=== PATIENT | female | born 1975 | race Caucasian/White ===

== ENCOUNTER 2018-03-12 15:08 | Outpatient (REF) | payer SELFPAY | END 2018-03-12 15:28 | LOC: NCHCN 15:08 | PROVIDERS: PCP Internal Medicine; Visit Provider Nurse Practitioner Family | DX: L29.8 Other pruritus (principal) | CPT/HCPCS: 87480; 87510; 87660 ==

== ENCOUNTER 2019-05-19 13:12 | Outpatient (REF) | payer OTHER, SELFPAY ==
[2019-05-19 13:47] LABS: HCT 42.3 % (36.0-46.0); HGB 14.5 g/dL (12.0-15.5); Mean Corp. HGB Concentration 34.3 g/dL (32.0-36.0); Mean Corpuscular Volume 90.4 fL (80-95); Mean Platelet Volume 9.6 fL (8.0-11.0); Platelet Count 312 x1000/uL (130-400); RBC 4.68 m/cumm (4.00-5.20); RBC Distribution Width 13.5 % (11.7-14.6); White Blood Cell Count 5.66 k/cumm (4.4-10.8)
[2019-05-19 14:01] LABS: ALT 39 U/L (14-59); AST 17 U/L (15-37); Albumin 3.9 g/dL (3.4-5.0); Alkaline Phosphatase 65 U/L (46-116); Anion Gap 10.7 mmol/L (3-11); BUN 14 mg/dL (7-18); Bilirubin, Total 0.6 mg/dL (0.2-1.0); CO2 25.3 mmol/L (21.0-32.0); CREATININE 0.85 mg/dL (0.55-1.02); Calcium 9.2 mg/dL (8.5-10.1); Calculated LDL 89 mg/dL; Chloride 109 mmol/L (98-107); Cholesterol 142 mg/dL (<200); Glucose 99 mg/dL (74-106); HDL Cholesterol 37 mg/dL (40-60); Potassium 4.2 mmol/L (3.5-5.1); Sodium 145 mmol/L (136-145); Total Protein 6.7 g/dL (6.4-8.2); Triglyceride 83 mg/dL (<150)
== END 2019-05-19 13:32 ==
LOC: NCHCN 13:12
PROVIDERS: PCP Nurse Practitioner Family; Visit Provider Nurse Practitioner Family
DX: Z00.00 Encounter for general adult medical examination without abnormal findings (principal); Z86.32 Personal history of gestational diabetes; Z13.220 Encounter for screening for lipoid disorders
CPT/HCPCS: 80053; 80061; 85027

== ENCOUNTER 2019-05-26 10:37 | Outpatient (REF) | payer OTHER, SELFPAY ==
--- NOTE | 2019-05-26 08:00 | PAPFT_PTH ---
PATIENT: Fidelina Mac LOC: [facility] U#:[id number] AGE/SX: 43/F ROOM: RE05/26/[address]: Edgar Zamora : 1975 BED: DIS: 05/26/2019 SPEC #: [id number] RECD: 05/26/19 12:59 STATUS: PRICE REQ #: [id number] CAROLINE: 05/26/19 08:[address]: Edgar Zamora DEPT: [facility] Cytology RECD BY: Catie Whitlock Tissues: 1 - CX/ENDOCX FOR PAP SMEARS Procedures: PAP THIN PREP/UVM Screening HPV DNA PROBE Comments: [id number]
== END 2019-05-26 10:57 ==
LOC: NCHCN 10:37
PROVIDERS: PCP Nurse Practitioner Family; Visit Provider Nurse Practitioner Family
DX: N89.8 Other specified noninflammatory disorders of vagina (principal); Z12.4 Encounter for screening for malignant neoplasm of cervix; Z11.51 Encounter for screening for human papillomavirus (HPV)
CPT/HCPCS: 88142; 87480; 87510; 87624; 87660

== ENCOUNTER 2019-05-30 00:56 | Outpatient (CLI) | payer OTHER, SELFPAY ==
--- NOTE | 2019-05-30 08:07 | DI.US_ITS ---
EXAM: US PELVIS TRANSVAGINAL CLINICAL HISTORY: ABNL UTERINE BLEEDING, N93.9 TECHNIQUE: Ultrasound performed using standard protocol. COMPARISON: No exams were available for comparison FINDINGS: Pelvic ultrasound was performed transabdominally and transvaginally. Please see the accompanying maryann a sheet for measurements of pelvic structures. Uterus is unremarkable within an 11 millimeter homoge neous endometrial stripe. Some tiny calcifications may be present in the lower uterine segment, poss ible fibroid. Tiny both nabothian cyst noted as well. No free fluid identified in the cul-de-sac. Ovaries as seen unremarkable although limited visualiza tion of the right ovary noted. Dominant 19 millimeter follicle left ovary. Limited scanning of the kidneys is unremarkable. IMPRESSION: Negative pelvic ultrasound.
== END 2019-05-30 01:16 ==
PROVIDERS: PCP Nurse Practitioner Family; Visit Provider Nurse Practitioner Family
DX: N93.9 Abnormal uterine and vaginal bleeding, unspecified (principal); N88.8 Other specified noninflammatory disorders of cervix uteri
CPT/HCPCS: 76830; 76856

== ENCOUNTER 2020-05-29 16:02 | Outpatient (REF) | payer BC, SELFPAY ==
--- NOTE | 2020-05-29 14:00 | PAPFT_PTH ---
PATIENT: Fidelina Mac LOC: [facility] #:[id number] AGE/SX: 44/F ROOM: RE05/29/[address]: Edgar Zamora : 1975 BED: DIS: 05/29/2020 SPEC #: [id number] RECD: 05/29/20 17:41 STATUS: PRICE REEdin #: [id number] CAROLINE: 05/29/20 14:[address]: Edgar Zamora DEPT: [facility] Cytology RECD BY: Catie Whitlock Tissues: 1 - CX/ENDOCX FOR PAP SMEARS Procedures: PAP THIN PREP/UVM Screening HPV DNA PROBE Comments: [id number]
== END 2020-05-29 16:22 ==
LOC: NCHCN 16:02
PROVIDERS: PCP Nurse Practitioner Family; Visit Provider Nurse Practitioner Family
DX: Z00.00 Encounter for general adult medical examination without abnormal findings (principal); Z12.4 Encounter for screening for malignant neoplasm of cervix; Z11.51 Encounter for screening for human papillomavirus (HPV)
CPT/HCPCS: 88142; 87624

== ENCOUNTER 2020-08-08 02:05 | Outpatient (CLI) | payer BC, SELFPAY ==
--- NOTE | 2020-08-08 | DI.US_ITS ---
EXAM: US BREAST LT COMPLETE CLINICAL HISTORY: RT BREAST LUMP, N63.0. TECHNIQUE: See combined report. COMPARISON: See combined report FINDINGS: See combined report IMPRESSION: See combined report Breast density Category C or D implies that the patient has dense breast tissue. Dense breast tissue can make it harder to find cancer on a mammogram. Dense breast tissue is also associated with an incr eased risk of breast cancer. This information about the result of the mammogram report was provided to the patient to raise their awareness. Use this report when you speak with the patient about their risks for breast cancer, which includes their family history. At that time, you may recommend additional screening tests (Ultrasoun d or MRI) as these tests may add significant information. A negative radiographic report should not delay biopsy if a dominant or clinically suspicious mass is present. Up to ten percent of cancers are not identified on mammography. A negative report may reinforce clinical impression. Adenosis and dense breasts may obscure an underlying neoplasm. False positive reports average 6 to 10%. Patient will receive a letter notifying them of these results.
--- NOTE | 2020-08-08 | DI.US_ITS ---
EXAM: BILATERAL COMPLETE BREAST ULTRASOUND CLINICAL HISTORY: RIGHT BREAST LUMP. ABNORMALITY IN LEFT BREAST ON MAMMOGRAM TECHNIQUE: Complete ultrasound BOTH BREASTS was performed including all 4 quadrants, the retroareola r region, and BOTH AXILLARY REGIONS. COMPARISON: Today's diagnostic baseline mammogram was reviewed. This 44-year-old patient was sent f or diagnostic mammogram because her provider felt a possible lump in her right breast. She did not p resent to her provider with lump FINDINGS: Left breast ultrasound is negative in all 4 quadrants. This implies that the asymmetric tissue seen in the upper outer quadrant of the left breast on today's baseline mammogram is just asymmetric gland ular tissue. There is no adenopathy in the left axilla. Right breast ultrasound today reveals 2 similar appearing findings at the 3-4 o'clock position which is the area of possible concern. Both have the appearance of benign lipomas. These measure 10 x 5 m illimeters and 11 x 6 millimeter. There are no cysts seen. No solid lesions seen in all 4 quadrants . There is no adenopathy in the right axilla. IMPRESSION: Two benign lipomas at the 3-4 o'clock position of the right breast in the area of apparent clinical c oncern. No ominous solid lesions. No cysts seen. Appropriate follow-up is right breast ultrasound in 6 months to ensure stability. BI-RADS Category 3 - 6 month - Probably Benign Finding: Recommend follow-up ULTRASOUND in 6 months Breast Density - Category B - Scattered areas of fibroglandular density Breast density Category C or D implies that the patient has dense breast tissue. Dense breast tissue can make it harder to find cancer on a mammogram. Dense breast tissue is also associated with an incr eased risk of breast cancer. This information about the result of the mammogram report was provided to the patient to raise their awareness. Use this report when you speak with the patient about their risks for breast cancer, which includes their family history. At that time, you may recommend additional screening tests (Ultrasoun d or MRI) as these tests may add significant information. A negative radiographic report should not delay biopsy if a dominant or clinically suspicious mass is present. Up to ten percent of cancers are not identified on mammography. A negative report may reinforce clinical impression. Adenosis and dense breasts may obscure an underlying neoplasm. False positive reports average 6 to 10%. Patient will receive a letter notifying them of these results.
--- NOTE | 2020-08-08 09:52 | DI.MAMMO_ITS ---
EXAM: MG MAMMO DIAGNOSTIC BI CLINICAL HISTORY: DIAGNOSTIC, RT BREAST LUMP,N63.0, ? CYST. TECHNIQUE: Both CC and MLO mammographic images were obtained with 3D [employer] and util izing computer aided detection (CAD). COMPARISON: None. This is a baseline diagnostic mammogram on this 44-year-old patient who has provi milton felt a possible lump in her right breast. The patient did not present to her provider a self det ected breast change. FINDINGS: No significant radiographic findings in the right breast. Asymmetric tissue-possible nodule upper ou ter quadrant of the opposite-left breast is seen and prompted ultrasound examination to be an actual bilateral study (not just the symptomatic right breast). No malignant-appearing microcalcification groups in either breast. No skin thickening-traction. Bilateral complete breast ultrasound examination was performed immediately following this mammogram t gabby and reveals no significant focal findings in the left breast. Right breast ultrasound reveals 2 similar appearing benign lipomas at the 3-4 o'clock position, this corresponding to the area of palp able abnormality. There are no solid or significant cystic lesions seen in all 4 quadrants of the br east. There is no axillary adenopathy on either side IMPRESSION: No radiographic evidence of malignancy There 2 similar benign appearing lipomas at the 3-4 o'clock position of the right breast which corres pond to apparent clinical palpable finding. No solid lesions. Appropriate follow-up is repeat right breast ULTRASOUND in 6 months, earlier if clinically indicated. . BI-RADS Category 3 - 6 month - Probably Benign Finding: Recommend follow-up mammography in 6 months Breast Density - Category B - Scattered areas of fibroglandular density Breast density Category C or D implies that the patient has dense breast tissue. Dense breast tissue can make it harder to find cancer on a mammogram. Dense breast tissue is also associated with an incr eased risk of breast cancer. This information about the result of the mammogram report was provided to the patient to raise their awareness. Use this report when you speak with the patient about their risks for breast cancer, which includes their family history. At that time, you may recommend additional screening tests (Ultrasoun d or MRI) as these tests may add significant information. A negative radiographic report should not delay biopsy if a dominant or clinically suspicious mass is present. Up to ten percent of cancers are not identified on mammography. A negative report may reinforce clinical impression. Adenosis and dense breasts may obscure an underlying neoplasm. False positive reports average 6 to 10%. Patient will receive a letter notifying them of these results.
== END 2020-08-08 02:25 ==
PROVIDERS: PCP Nurse Practitioner Family; Visit Provider Nurse Practitioner Family
DX: N63.14 Unspecified lump in the right breast, lower inner quadrant (principal); N63.21 Unspecified lump in the left breast, upper outer quadrant; D24.1 Benign neoplasm of right breast
CPT/HCPCS: 76642; 77062; 77066; G0279

== ENCOUNTER 2021-06-03 22:17 | Outpatient (REF) | payer BC, SELFPAY | END 2021-06-03 22:18 | disposition home or self-care (01) | LOC: LBN 22:17 | PROVIDERS: PCP Nurse Practitioner Family; Visit Provider Family Medicine | DX: L08.89 Other specified local infections of the skin and subcutaneous tissue (principal) | CPT/HCPCS: 87077; 87070; 87205 ==

== ENCOUNTER 2021-06-05 15:06 | Emergency (ER) | payer BC, SELFPAY ==
[2021-06-05 15:13] VITALS: BP 144/79; PULSE 70; RESP 14; TEMP 36.5; O2SAT 99
--- NOTE | 2021-06-05 15:15 | DI.RAD_ITS ---
Exam(s) XR HAND LT COMPLETE EXAM: XR HAND LT COMPLETE CLINICAL HISTORY: Wound left index finger, R/O Gas, Foreign body. TECHNIQUE: 2D digital imaging was performed. COMPARISON: No exams were available for comparison FINDINGS: No evidence of fracture or dislocation. No radiopaque foreign body. No osseous lesions. No soft ti ssue gas. IMPRESSION: DATA REPOSITORY: RADIATION DOSE DELIVERED:
--- NOTE | 2021-06-05 15:27 | W.ED.GENAD ---
Discharge Plan Disposition Patient Disposition: HOME Condition: Stable Discharge Details Clinical Impression: Cellulitis of hand, left Primary Care Provider: Edgar Zamora ED Provider: Daniel Mayer Home Meds and New Rx's Prescriptions: New doxycycline hyclate 100 mg capsule 100 mg PO BID Qty: 20 RF: 0 Continued clobetasol 0.05 % cream 1 applic topical .COMPLEX PRNRF: 0 cephalexin 500 mg capsule 1,000 mg PO BID RF: 0 Discharge Instructions Instructions: Cellulitis (ED) Additional Instructions: Continue cephalexin and add on doxycycline as directed. Rest, elevate, warm compresses every 2 hours for 20 minutes. [id number] Tylenol and/or Motrin as directed for discomfort. Your tetanus status is up-to-date and your hand x-ray was unremarkable. Please watch for new or worsening symptoms and return to the ER for any concerns. Otherwise I recommend contacting your primary care provider to discuss your ER visit and wound reevaluation in the next 2-3 days. Discharge Data Discharge Date/Time-TO BE ENTERED AT DEPARTURE: 06/05/21 16:35 Medical Decision Making <Raissa Guerrero - Last Filed: 06/11/21 08:12> 45-year-old female presents to the ER with chief complaint of wound to her left index finger which has been present and Thursday. She reports that she awoke with a small blister to the dorsum of her left index finger she is unsure if she sustained a burn or cut. She was seen at [facility] on Thursday and was prescribed cephalexin. She reports she called the provider today and has doubled up on the dose of cephalexin so she is taking it now 4 times a day. She reports some increased tenderness, erythema and swelling to the dorsum of her left hand. She does have tenderness and with flexion of her left index finger. No tenderness with flexion of her wrist. No red streaks noted to her forearm denies any fever or chills. Last Tdap was 2019. X-ray ordered to rule out foreign body or gas. Will place patient on additional antibiotics doxycycline 100 mg twice daily first dose given here. 500 mg Rocephin IM ordered. Care is to be handed off to oncoming provider Daniel Mayer pending x-ray result rule out foreign body or subcutaneous emphysema. <ADDIS Smith - Last Filed: 06/05/21 16:25> I assumed care of this 45-year-old female from my colleague EMILY Guerrero, please see her initial HPI and examination. At time of signout awaiting x-ray of left hand and discharge if unremarkable. Patient is already on Keflex for a left hand wound, plan is to give IM Rocephin, and add on p.o. doxycycline. X-ray of left hand read by radiology as no evidence of fracture or dislocation. No radiopaque foreign body. No osseous lesions. No soft tissue gas. I discussed x-ray findings with the patient. We then discussed the initial position set forth by EMILY Guerrero. Patient has no additional questions or concerns and is comfortable plan. Strict discharge and return precautions were provided. This documentation was generated using [employer] system, please disregard any oddities of phrase or misspellings. HPI <Raissa Guerrero - Last Filed: 06/11/21 08:12> General Mode of arrival: ambulatory. Date/Time Provider Initiated Documentation: 06/05/21 15:17. Limitations to Documentation: no limitations. Information obtained by: patient and RN notes reviewed. HPI Narrative: 45-year-old female presents to the ER with chief complaint of wound to her left index finger which has been present and Thursday. She reports that she awoke with a small blister to the dorsum of her left index finger she is unsure if she sustained a burn or cut. She was seen at [facility] on Thursday and was prescribed cephalexin. She reports she called the provider today and has doubled up on the dose of cephalexin so she is taking it now 4 times a day. She reports some increased tenderness, erythema and swelling to the dorsum of her left hand. She does have tenderness and with flexion of her left index finger. No tenderness with flexion of her wrist. No red streaks noted to her forearm denies any fever or chills. Last Tdap was 2019. Related Data Home Medications Medication Instructions Recorded Confirmed cephalexin 1,000 mg PO BID 06/05/21 06/05/21 clobetasol 1 applic TOPICAL .COMPLEX PRN 06/05/21 06/05/21 doxycycline hyclate 100 mg PO BID #20 cap 06/05/21 Previous Rx's Medication Instructions Recorded doxycycline hyclate 100 mg PO BID #20 cap 06/05/21 Allergies Allergy/AdvReac Type Severity Reaction Status Date / Time No Known Allergies Allergy Unverified 06/05/21 15:16 General Stated Complaint: Orthopedic BERT: 3 Review of Systems <Raissa Guerrero - Last Filed: 06/11/21 08:12> All systems reviewed & are unremarkable except as noted in HPI and below Musculoskeletal Musculoskeletal: Reports as per HPI Integumentary/Breasts Skin/Breast: Reports erythema, Reports skin swelling and Reports wounds PFSH <Raissa Guerrero - Last Filed: 06/11/21 08:12> All Active Problems (Updated 06/05/21 @ 16:22 by ADDIS Smith) Cellulitis of hand, left (Acute) Screening for colon cancer (Acute) 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 Rx with Clobetasol with good results. Acute pain of right shoulder (Acute) Body mass index (bmi) 38.0-38.9, adult (Acute) Abnormal uterine bleeding (Acute) Discharge of vagina (Acute) Medical History (Updated 06/05/21 @ 16:22 by ADDIS Smith) Episcleritis periodica fugax of right eye Fingers fractured in childhood. History of gestational diabetes mellitus Localized swelling of left foot Preventative health care Family History (Updated 06/04/19 @ 20:55 by Karol Lynch MD) Brother Heart disease heart valve surgery @ 28yo. Social History (Updated 06/04/19 @ 20:52 by Karol Lynch MD) Smoking/Tobacco Use Status: Never Smoking risk assessment performed?: Yes Alcohol Intake: current Alcohol Intake frequency: 0-2 drinks per day Drug use: Never Substance use type: does not use Household members: spouse and other Details: H-Kevin ([employer]) Children-Flash Rylan Number of Children: 2 number of grandchildren: 0 Communication Needs: None Education Level: other Details: law school current occupation: [employer] Seatbelt use: always Do you feel safe at home: Yes Do you feel safe in your relationship?: Yes Female Reproductive History Menstrual control method: condoms History History 2 Para Hx # Term Pregnancies 2 Multiple births Hx # Pregnancies Ectopic pregnancies AB induced Hx Number of Living Children AB spontaneous Exam <Raissa Guerrero - Last Filed: 06/11/21 08:12> Extrem Hand/finger images: 1. Approximately 1.5 cm x 1.5 cm round wound with white floor, erythema surrounding, swelling and induration. No active drainage noted. 2. Erythema, warmth, swelling and tenderness Course <Raissa Guerrero - Last Filed: 06/11/21 08:12> Vital Signs Vital signs: Vital Signs Temperature 36.5 C 06/05/21 15:13 Pulse 70 06/05/21 15:13 Respiratory Rate 14 06/05/21 15:13 Blood Pressure 144/79 H 06/05/21 15:13 Pulse Oximetry 99 06/05/21 15:13 Temperature 36.5 C 06/05/21 15:13 Temperature Source Skin 06/05/21 15:13 Pulse 70 06/05/21 15:13 Respiratory Rate 14 06/05/21 15:13 Respiratory Effort 06/05/21 15:19 Blood Pressure 144/79 H 06/05/21 15:13 Pulse Oximetry 99 06/05/21 15:13 Oxygen Delivery Method Room Air 06/05/21 15:13 Oxygen Flow Rate 0 06/05/21 15:13 Pain Level 3 06/05/21 15:13 Comment 06/05/21 15:13 Sign Out <Raissa Guerrero - Last Filed: 06/11/21 08:12> Sign Out Data: Sign Out Comment: Pending xray results and Doxycycline prescription. Last updated by Raissa Guerrero at 06/05/21 16:00
[2021-06-05] MEDS: Doxycycline Hyclate 100 MG CAP PO (15:39)
[2021-06-05] MEDS: cefTRIAXone 500 MG VIAL IM (16:10)
[2021-06-05 16:33] VITALS: BP 131/71; PULSE 74; TEMP 36.3; O2SAT 97
== END 2021-06-05 16:35 | disposition home or self-care (01) ==
PROVIDERS: Emergency Provider Physician Assistant; PCP Nurse Practitioner Family
DX: L03.114 Cellulitis of left upper limb (principal); S60.941A Unspecified superficial injury of left index finger, initial encounter; X58.XXXA Exposure to other specified factors, initial encounter
CPT/HCPCS: 96372; 99284; 73130; 99283; J0696

== ENCOUNTER 2021-12-30 09:09 | Day surgery (SDC) | payer BC, SELFPAY ==
--- NOTE | 2021-12-30 06:32 | COLE_ITS ---
Colonoscopy Report Date of procedure: 12/30/21 Pre-op diagnosis general: colon cancer screening Post-op diagnosis procedure note: other (polyps) Procedure: Colonoscopy with polypectomy Surgeon: Ana Chahal Anesthesia Type: General:No Airway Estimated blood loss (mL): 2 Pathology: other (ascending polyps x2, sigmoid polyp) Complications: None Disposition: same day Indications: The patient is here for Colonoscopy pre-op. She has no family history of colon cancer. She has not had any bowel habit changes. -Discussed colonoscopy bowel prep as well as the procedure. Discussed possible complications of the procedure to include bleeding, pain, perforation, missed small lesion/polyp, sore throat, aspiration and adverse reaction to the medications. Questions were answered to patient?s satisfaction. No guarantees were implied or given.? P// Colonoscopy under sedation. Prep: Miralax/Dulcolax Procedure Start Time: 11:27 Procedure End Time: 11:52 Retraction Time: 9 minutes Findings: 3 small benign appearing polyps Procedure Description: After informed consent was obtained the patient was taken to the procedure room and placed in a left decubitous position. Monitors were applied and a time out was done. The patients name, date of , procedure, allergies to medica tions and metal in their body was reviewed. The patient was then sedated. Once sedated and comfortable a rectal exam was done. External exam was normal. Internal exam revealed a normal sphincter tone and no palpable masses. The scope was then introduced and retro-flexed. No internal hemorrhoids, polyps or masses were identified on retro-flexion. The scope was then advanced to the cecum without difficulty. The ileocecal vlave and appendiceal orifice were identified. The prep was good. The scope was then slowly retracted over 9 minutes back into the rectum. Polyps were removed at with cold forceps in the ascending colon x2 and sigmoid colon x1. There was no diverticulosis noted. The scope was removed and the patient was woken up and taken back to Same day surgery in stable condition. The patient tolerated the procedure well and there were no immediate complications.
--- NOTE | 2021-12-30 06:34 | W.PM.DSUDISC ---
Discharge Plan Disposition Patient Disposition: HOME Condition: Good Discharge Details Reason For Visit: colonoscopy Attending Provider: Ana Chahal Primary Care Provider: Edgar Zamora Home Meds and New Rx's Prescriptions: Continued clobetasol 0.05 % cream See Rx Instructions .ROUTE .COMPLEX Qty: 45 5RF Dose Instruction: APPLY SMALL AMOUNT TOPICALLY TO VULVA TWICE A WEEK Rx Instructions: APPLY SMALL AMOUNT TOPICALLY TO VULVA TWICE A WEEK Discontinued polyethylene glycol 3350 17 gram/dose powder 238 g PO ONCE Qty: 238 0RF Rx Instructions: take per colonoscopy instructions bisacodyl [Dulcolax (bisacodyl)] 5 mg tablet,delayed release (DR/EC) 5 mg PO ONCE Qty: 4 0RF Rx Instructions: take per colonoscopy instructions Discharge Instructions Instructions: Colorectal Polyps (DC) Additional Instructions: Findings:3 small polyps Follow up: most likely 10 years Please call if you develop: fevers >101.5 Nausea or Vomiting Abdominal pain that is not transient Rectal bleeding that is more then a tbsp A hard abdomen and inability to pass gas DAY SURGERY UNIT POST ENDOSCOPY INSTRUCTIONS Instructions for everyone who is given Anesthesia: For your safety, please do the following for the next 24 Hours: a. Do not drive or operate dangerous equipment b. Do not drink alcohol beverages or use any recreational drugs for the first 24 hours or while taking pain medications. The medications in your body may have a reaction that can be dangerous. c. Do not make any important decisions or sign any important papers 1. Generally there are no restrictions on your activity after a day or so has gone by, but you may feel a bit fatigued for a few days. 2. After you arrive home you may have a light meal and return to a normal diet as you can tolerate it without feeling sick to your stomach. 3. After surgery, you may feel pain or discomfort. This should be only transient, but if it persists please contact your doctor. 4. If there are any questions regarding the findings of your procedure, please feel free to contact your doctor. 6. If you are unable to contact your doctor with a problem, contact the hospital at [phone]. 7. Continue all your regular medications unless directed otherwise. I understand the above instructions and have no questions. Signature of Patient or Responsible Adult Escort Date/Time Name of Responsible Adult Escort Signature of Nurse Date/Time Activity:: Activity as Tolerated Diet:: As Tolerated Discharge Orders Discharge Orders: Discharge Order (Routine); Ordered 12/30/21 Ordered By: Ana Chahal
[2021-12-30 09:15] VITALS: BP 127/88; PULSE 68; RESP 18; TEMP 36.2; O2SAT 96
[2021-12-30] MEDS: Lactated Ringers 1,000 ML 80 ML IV (09:42)
--- NOTE | 2021-12-30 11:13 | W.ANESPRE ---
General Info Date of Service Date Performed: 12/30/21 Height: 5 ft 11 in Weight: 123.2 kg Body Mass Index (BMI): 37.8 Surgical Procedure: Operation Date: 12/30/21 12:05 Proposed Procedure Side Surgeon p Colonoscopy Ana Chahal MD Meds Allergies and Home Medications Allergies Allergy/AdvReac Type Severity Reaction Status Date / Time No Known Allergies Allergy Unverified 12/30/21 09:12 Home Medication Medication Instructions Recorded clobetasol 0.05 % topical cream See Rx Instructions .Route 11/29/21 .COMPLEX #45 grams bisacodyl 5 mg tablet,delayed 5 mg PO ONCE colonscopy bowel prep 12/20/21 release (Dulcolax (bisacodyl)) #4 tabs polyethylene glycol 3350 17 238 g PO ONCE colonoscopy prep 12/20/21 gram/dose oral powder #238 grams Current Visit Medications: Current Medications Generic Name Dose Route Start Last Admin Trade Name Freq PRN Reason Stop Dose Admin Hyoscyamine Sulfate 0.125 mg 12/30/21 06:35 Hyoscyamine 0.125 Mg Sl/Oral/Chew SL DIRECTED PRN Ringer's Solution 1,000 mls @ 80 mls/hr 12/30/21 06:00 12/30/21 09:42 IV 01/26/22 23:59 80 mls/hr INFUSION MARK Administration IV Miscellaneous Supplies 1 each 12/30/21 06:00 Iv Access IV 01/26/22 23:59 DIRECTED MARK Ondansetron HCl 4 mg 12/30/21 06:35 Ondansetron 4 Mg/2 Ml Vial IVP Q4H PRN PRN Nausea / Vomiting Sodium Chloride 0 ml 12/30/21 06:00 Normal Saline Flush 10 Ml Syr IV 01/26/22 23:59 PRN PRN Sodium Chloride 0 ml 12/30/21 06:00 Normal Saline 10 Ml Vial IJ 01/26/22 23:59 DIRECTED PRN Sterile Water 0 ml 12/30/21 06:00 Water,Injection,Sterile 10 Ml Vial IJ 01/26/22 23:59 DIRECTED PRN PFSH Active Problems Active Problems: Problem Status Onset Code Screening for colon cancer Z12.11 Lichen sclerosus et atrophicus L90.0 Acute pain of right shoulder M25.511 Body mass index (bmi) 38.0-38.9, adult Z68.38 Abnormal uterine bleeding N93.9 Discharge of vagina N89.8 Medical History Medical History Episcleritis periodica fugax of right eye Fingers fractured in childhood. History of gestational diabetes mellitus Localized swelling of left foot Preventative health care Tobacco Smoking/Tobacco Use Status: Never Passive smoking exposure: No Alcohol Alcohol Intake: current Alcohol intake frequency: 0-2 drinks per day Substance Use Substance use: Never Substance use type: does not use Prental History History 2 Para Hx # Term Pregnancies 2 Multiple births Hx # Pregnancies Ectopic pregnancies AB induced Hx Number of Living Children AB spontaneous Vital Signs and Lab Results Vital Signs Most Recent Vital Signs in EMR: Most Recent Vital Signs Temp Pulse Resp BP Pulse Ox 36.2 C L 68 18 127/88 96 12/30/21 09:15 12/30/21 09:15 12/30/21 09:15 12/30/21 09:15 12/30/21 09:15 Lab Results Blood Type / Crossmatch: No Data to Display Complete Blood Count: No Data to Display Complete Metabolic Panel: No Data to Display Liver Function Panel: No Data to Display Coagulation Panel: No Data to Display Cardiac Panel: No Data to Display Arterial Blood Gas: No Data to Display Venous Blood Gas: No Data to Display Pancreas Panel: No Data to Display Thyroid Panel: No Data to Display Infectious Disease: No Data to Display Blood Cultures: No Data to Display Toxicology Panel: No Data to Display Panel: No Data to Display Anesthesia Assessment and Plan Anesthesia History Personal History: No History of Anesthesia Complications Family History: No Family History of Anesthesia Complications Exercise Tolerance Exercise Tolerance: Metabolic Equivalents>4 Pertinent Negatives Pertinent Negatives: No Symptoms of GERD, No Major Cardiovascular Symptoms or Complaints, No Major Pulmonary Symptoms or Complaints and No History of CVA/TIA Cardiac & Pulmonary Exam Cardiac Exam: Normal S1/S2 Heart Sounds Pulmonary Exam: Clear Bilateral Breath Sounds Implantable Cardiac Device Does patient have a Pacemaker or an ICD?: No Airway Exam Known Difficult Airway: No Mallampati Class: 1 Mouth Opening: Normal (> 3cm) Thyromental Distance: Greater than 3 cm Neck Range of Motion: Full ROM Neck Circumference: Normal Teeth Condition: Normal Dentition ASA Classification ASA Score: ASA 2 Emergency Case?: No NPO Status NPO Status: NPO Clears >2 hours, Solids >8 hours Status Status: Not Relevant due to Medical History Anesthesia Plan Resuscitation Status: Full Code Anesthesia Technique: General Anesthesia Airway Planned: Natural Airway Monitors Used: Standard Monitors
[2021-12-30 11:15] VITALS: BMI 37.8
--- NOTE | 2021-12-30 11:45 | BOWEL_PTH ---
PATIENT: Fidelina Mac LOC: [facility] U#:[id number] AGE/SX: 46/F ROOM: RE12/30/[address]: Ana Chahal MD : 1975 BED: DIS: 12/30/2021 SPEC #: [id number] RECD: 12/30/21 12:39 STATUS: PRICE REQ #: [id number] CAROLINE: 12/30/21 11:[address]: Ana Chahal DEPT: Surgical Specimen RECD BY: Catie Whitlock ENTERED: 12/30/21 12:40 SP TYPE: Bowel OTHR DR: Edgar Zamora Tissues: 1 - BIOPSY BOWEL 2 - BIOPSY BOWEL Procedures: GROSS AND MICRO LEVEL 4 Comments: [id number]
[2021-12-30 12:02] VITALS: BP 122/77; PULSE 69; RESP 17; TEMP 36.5; O2SAT 96
--- NOTE | 2021-12-30 12:07 | W.ANESPOSTOP ---
Postoperative Evaluation Date, Time and Location Date Performed: 12/30/21 Time Performed: 12:07 Patient Location: Day Surgery Unit Vital Signs Most Recent Imported Vital Signs: Most Recent Vital Signs Temp Pulse Resp BP Pulse Ox 36.2 C L 68 18 127/88 96 12/30/21 09:15 12/30/21 09:15 12/30/21 09:15 12/30/21 09:15 12/30/21 09:15 Most Recent Manually Entered Vital Signs: Adult Blood Pressure: 122/77 Heart Rate: 68 Respirations: 12 Oxygen Saturation (%): 96 Temperature (C): 36.3 C Pain Score (0-10 Scale): 0 Assessment Mental Status: Awake (Alert & Oriented to Patient Baseline) Airway and Respiratory Function: Patent airway with normal (patient baseline) respiratory exam Cardiovascular Function: Hemodynamically Stable Hydration Status: Adequately Hydrated Nausea & Vomiting: No Nausea or Vomiting Pain: Pt. Denies Any Pain Peripheral Nerve Block: Patient did not receive a nerve block
[2021-12-30 12:08] VITALS: BP 122/77; PULSE 68; RESP 12; TEMPC 36.3; O2SAT 96
[2021-12-30 12:30] VITALS: BP 122/88; PULSE 53; RESP 18; TEMP 36; O2SAT 96
== END 2021-12-30 12:56 | disposition home or self-care (01) ==
PROVIDERS: PCP Nurse Practitioner Family; Visit Provider Surgery
PROC: 0DJD8ZZ Inspection of Lower Intestinal Tract, Via Natural or Artificial Opening Endoscopic (ICD-10-PCS; CPT 45378; principal; 2021-12-30 12:00)
DX: Z12.11 Encounter for screening for malignant neoplasm of colon (principal); K63.5 Polyp of colon
CPT/HCPCS: 45380; 88305

== ENCOUNTER 2022-05-30 14:13 | Outpatient (REF) | payer BC, SELFPAY ==
[2022-05-30 19:09] LABS: Abs Immature Grans 0.01 10^3/uL (0.0-0.06); Absolute Basophil Count 0.06 10^3/uL (0.0-0.2); Absolute Eosinophil Count 0.13 10^3/uL (0.0-0.7); Absolute Monocyte Count 0.52 10^3/uL (0.1-0.8); Absolute Neutrophil Count 4.42 10^3/uL (1.2-6.7); Basophils % 0.9; HCT 44.1 % (36.0-46.0); HGB 14.9 g/dL (11.2-15.7); Immature Grans % 0.2; Lymphocytes % 21.4; MCH 30.3 pg (27.0-33.0); MCHC 33.8 % (32.0-36.0); MCV 90 fL (80-95); MPV 9.7 fL (8.0-11.0); Neutrophils % 67.5; Platelet Count 257 10^3/uL (130-400); RBC 4.91 10^6/uL (3.93-5.22); RDW 12.8 % (11.7-14.6); RDW-SD 41.9 fL; WBC 6.54 10^3/uL (4.4-10.8)
[2022-05-30 19:53] LABS: ALT 37 U/L (14-59); AST 24 U/L (15-37); Albumin 4.3 g/dL (3.4-5.0); Alkaline Phosphatase 88 U/L (46-116); Anion Gap 11.9 mmol/L (3-11); BUN 13 mg/dL (7-18); Bilirubin, Total 0.6 mg/dL (0.2-1.0); CO2 26.1 mmol/L (21.0-32.0); CREATININE 0.8 mg/dL (0.55-1.02); Calcium 9.5 mg/dL (8.5-10.1); Calculated LDL 88 mg/dL (<100); Chloride 107 mmol/L (98-107); Cholesterol 154 mg/dL (<200); Estimated GFR 91.97 (mL/min/1.73m2); Glucose 85 mg/dL (74-106); HDL Cholesterol 54 mg/dL (40-60); Sodium 145 mmol/L (136-145); TSH (W/Ref FT4) 1.71 uIU/mL (0.36-3.74); Total Protein 7.2 g/dL (6.4-8.2); Triglyceride 60 mg/dL (<150)
== END 2022-05-30 14:14 | disposition home or self-care (01) ==
LOC: NCHCN 14:13
PROVIDERS: Visit Provider Nurse Practitioner Family
DX: R53.83 Other fatigue (principal); Z13.220 Encounter for screening for lipoid disorders
CPT/HCPCS: 80053; 80061; 84443; 85025

== ENCOUNTER 2022-06-17 02:33 | Outpatient (CLI) | payer BC, SELFPAY ==
--- NOTE | 2022-06-17 | DI.MAMMO_ITS ---
Exam(s) MAMMO SCREENING EXAM: MAMMO SCREENING CLINICAL HISTORY: SCREENING, Z12.39. TECHNIQUE: Bilateral full field digital CC and MLO mammographic images were obtained with 3D tomosyn thesis and utilizing computer aided detection (CAD). COMPARISON: Prior mammograms were reviewed. Prior ultrasound reviewed. FINDINGS: There has been no significant change in the appearance and distribution of the fibroglandular tissue. There are no new spiculated masses nor malignant appearing microcalcification groups. There is no significant architectural distortion nor skin thickening-retraction. IMPRESSION: No radiographic evidence of malignancy. BI-RADS Category 1 - Negative Breast Density - Category B - Scattered areas of fibroglandular density Breast density Category C or D implies that the patient has dense breast tissue. Dense breast tissue can make it harder to find cancer on a mammogram. Dense breast tissue is also associated with an incr eased risk of breast cancer. This information about the result of the mammogram report was provided to the patient to raise their awareness. Use this report when you speak with the patient about their risks for breast cancer, which includes their family history. At that time, you may recommend additional screening tests (Ultrasoun d or MRI) as these tests may add significant information. A negative radiographic report should not delay biopsy if a dominant or clinically suspicious mass is present. Up to ten percent of cancers are not identified on mammography. A negative report may reinforce clinical impression. Adenosis and dense breasts may obscure an underlying neoplasm. False positive reports average 6 to 10%. Patient will receive a letter notifying them of these results.
== END 2022-06-17 02:53 ==
LOC: DI 02:33
PROVIDERS: Visit Provider Nurse Practitioner Family
DX: Z12.31 Encounter for screening mammogram for malignant neoplasm of breast (principal); R92.8 Other abnormal and inconclusive findings on diagnostic imaging of breast
CPT/HCPCS: 77063; 77067

== ENCOUNTER 2022-07-23 21:03 | Outpatient (REF) | payer BC, SELFPAY ==
[2022-07-23 20:46] LABS: Abs Immature Grans 0.03 10^3/uL (0.0-0.06); Absolute Basophil Count 0.06 10^3/uL (0.0-0.2); Absolute Eosinophil Count 0.11 10^3/uL (0.0-0.7); Absolute Monocyte Count 0.62 10^3/uL (0.1-0.8); Absolute Neutrophil Count 5.25 10^3/uL (1.2-6.7); Basophils % 0.8; Eosinophils % 1.5; HCT 44.4 % (36.0-46.0); HGB 14.8 g/dL (11.2-15.7); Immature Grans % 0.4; Lymphocytes % 17.6; MCHC 33.3 % (32.0-36.0); MCV 90 fL (80-95); MPV 9.4 fL (8.0-11.0); Monocytes % 8.4; Neutrophils % 71.3; Platelet Count 286 10^3/uL (130-400); RBC 4.94 10^6/uL (3.93-5.22); RDW 12.7 % (11.7-14.6); RDW-SD 41.3 fL; WBC 7.37 10^3/uL (4.4-10.8)
[2022-07-23 20:59] LABS: ALT 33 U/L (14-59); AST 26 U/L (15-37); Alkaline Phosphatase 88 U/L (46-116); Anion Gap 10.3 mmol/L (3-11); BUN 14 mg/dL (7-18); Bilirubin, Total 0.6 mg/dL (0.2-1.0); CO2 26.7 mmol/L (21.0-32.0); CREATININE 0.9 mg/dL (0.55-1.02); Calcium 9.5 mg/dL (8.5-10.1); Chloride 105 mmol/L (98-107); Estimated GFR 79.85 (mL/min/1.73m2); Glucose 89 mg/dL (74-106); Sodium 142 mmol/L (136-145); Total Protein 7.5 g/dL (6.4-8.2)
== END 2022-07-23 21:04 | disposition home or self-care (01) ==
LOC: NCHCN 21:03
PROVIDERS: Visit Provider Nurse Practitioner Family
DX: R10.9 Unspecified abdominal pain (principal)
CPT/HCPCS: 80053; 85025

== ENCOUNTER 2022-11-10 20:42 | Outpatient (REF) | payer BC, SELFPAY ==
[2022-11-10 21:27] LABS: Abs Immature Grans 0.04 10^3/uL (0.0-0.06); Absolute Basophil Count 0.06 10^3/uL (0.0-0.2); Absolute Eosinophil Count 0.07 10^3/uL (0.0-0.7); Absolute Lymphocyte Count 1.55 10^3/uL (1.2-3.4); Absolute Monocyte Count 1.25 10^3/uL (0.1-0.8); Basophils % 0.5; Eosinophils % 0.6; HCT 42.5 % (36.0-46.0); HGB 14.8 g/dL (11.2-15.7); Immature Grans % 0.3; Lymphocytes % 13.5; MCH 31.4 pg (27.0-33.0); MCHC 34.8 % (32.0-36.0); MCV 90 fL (80-95); MPV 9.6 fL (8.0-11.0); Monocytes % 10.9; Neutrophils % 74.2; Platelet Count 256 10^3/uL (130-400); RBC 4.72 10^6/uL (3.93-5.22); RDW 13.1 % (11.7-14.6); RDW-SD 43.1 fL; WBC 11.48 10^3/uL (4.4-10.8)
[2022-11-10 21:28] LABS: Absolute Neutrophil Count 8.52 10^3/uL (1.2-6.7)
[2022-11-10 21:47] LABS: ALT 25 U/L (14-59); AST 21 U/L (15-37); Albumin 3.7 g/dL (3.4-5.0); Alkaline Phosphatase 68 U/L (46-116); Anion Gap 10.1 mmol/L (3-11); BUN 8 mg/dL (7-18); CO2 24.9 mmol/L (21.0-32.0); CREATININE 0.9 mg/dL (0.55-1.02); Calcium 9.1 mg/dL (8.5-10.1); Chloride 104 mmol/L (98-107); Estimated GFR 79.85 (mL/min/1.73m2); Glucose 91 mg/dL (74-106); Potassium 3.9 mmol/L (3.5-5.1); Sodium 139 mmol/L (136-145); Total Protein 7.4 g/dL (6.4-8.2)
== END 2022-11-10 20:43 | disposition home or self-care (01) ==
LOC: NCHCN 20:42
PROVIDERS: Visit Provider Nurse Practitioner Family
DX: R10.9 Unspecified abdominal pain (principal)
CPT/HCPCS: 80053; 85025

== ENCOUNTER 2022-11-14 01:20 | Outpatient (CLI) | payer BC, SELFPAY ==
--- NOTE | 2022-11-14 | DI.CT_ITS ---
Exam(s) CT ABDOMEN PELVIS W EXAM: CT ABDOMEN PELVIS W CLINICAL HISTORY: ABDOMINAL PAIN ACUTE, R10.9, 5 DAYS, NAUSEA, LOOSE STOOLS. TECHNIQUE: Imaging Protocol: Axial computed tomography images with coronal and sagittal reformatted images were created and reviewed CONTRAST MATERIAL: Intravenous: Omnipaque 350 Contrast volume:100 ml Oral: yes / COMPARISON: No exams were available for comparison FINDINGS: ABDOMEN: Lung Bases: Normal where visualized. Liver: Normal density. Three low-density lesions seen in the liver, likely hemangiomas. Gallbladder and biliary tract: No radiodense calculus or dilation. Pancreas: Normal density, no abnormal calcifications or inflammatory process. Spleen: Normal. Kidneys: Normal size, contour and axis. No radiodense stones or obstructive uropathy. No suspicious m asses seen. Adrenal glands: No masses seen. Abdominal Aorta: Abdominal portion non-dilated. Soft tissues: Unremarkable. PELVIS: Bladder: No gross wall thickening. No calculi.No focal mass. Bowel: Diverticulosis of the lower descending and sigmoid colon. Wall thickening and inflammation se en at the junction of the descending and sigmoid colon, consistent with diverticulitis. No perforati on or abscess. Normal quantity of stool. No obstruction. No small bowel wall thickening. Appendix normal. Peritoneal cavity: No ascites or localized collection. Bones: Degenerative disc changes at L4-5 and L5-S1. Reproductive organs: Within normal limits. Lymph nodes: Unremarkable. Impression: Diverticulitis at the junction of the sigmoid descending colon. RADIATION DOSE DELIVERED: 1,579.84mGy.cm Total DLP DATA REPOSITORY: All CT scans at this facility are submitted to the National Radiology Data Registry (NRDR) Dose Index Registry (DIR) with the [employer] (ACR). RADIATION OPTIMIZATION: All CT scans at this facility use at least one of these dose optimization te chniques: automated exposure control; mA and/or kV adjustment per patient size (includes targeted exa ms where dose is matched to clinical indication); or iterative reconstruction.
[2022-11-14] MEDS: Barium Sulfate 2% W/V-Creamy Vanilla Smoothie 450 ML BTL 900 ML PO (12:51)
[2022-11-14] MEDS: Normal Saline - Diluent 50 ML VIAL IJ (13:46)
[2022-11-14] MEDS: Normal Saline Flush 10 ML SYR IVP (13:47)
[2022-11-14] MEDS: Omnipaque 350 MG/ML 100 ML BTL IJ (13:47)
== END 2022-11-14 01:40 ==
LOC: DI 01:20
PROVIDERS: Visit Provider Nurse Practitioner Family
DX: K57.32 Diverticulitis of large intestine without perforation or abscess without bleeding (principal)
CPT/HCPCS: 74177; J3490

== ENCOUNTER → 2023-12-17 12:49 | Outpatient (CLI) | payer BC, SELFPAY ==
--- NOTE | 2023-12-17 | DI.RAD_ITS ---
Exam(s) XR FEMUR RT EXAM: XR FEMUR RT CLINICAL HISTORY: Pain in rt leg, M79.604. TECHNIQUE: 2D digital imaging was performed. COMPARISON: No exams were available for comparison FINDINGS: Two views No evidence of femur fracture. Benign sclerotic density probable bone island is noted in the intertr ochanteric region of the hip. No hip joint degenerative changes evident. Lower down in the femur th ere is a small sclerotic density which does not have the typical appearance of a benign bone island. Also eccentric cyst cirrhosis seen in the distal femoral diaphysis which may be remnant of fibrous c ortical defect. IMPRESSION: Findings as above in the distal femur, probably benign but recommend follow-up MRI DATA REPOSITORY: RADIATION DOSE DELIVERED:
== END ==
PROVIDERS: Visit Provider Physician Assistant Medical
DX: M79.604 Pain in right leg (principal)
CPT/HCPCS: 73552

== ENCOUNTER 2023-12-22 02:02 | Outpatient (CLI) | payer BC, SELFPAY ==
--- NOTE | 2023-12-22 | DI.MRI_ITS ---
Exam(s) MR LOWER EXTREMITY RT WO EXAM: MR LOWER EXTREMITY RT WO CLINICAL HISTORY: M89.9 Disorder of bone, unspecified,pain rt leg, sclerotic density on xr TECHNIQUE: Multiplanar multisequence MRI was performed. COMPARISON: CR XR FEMUR RT from 12/17/2023 FINDINGS: MARROW:There is an eccentric longtitudinally orientated non expansile bone lesion in the posterolater al aspect of the distal diaphysis of the right femur corresponding to what is seen on recent plain fi lms. This measures approximately 7 cm length by 0 point 8 cm AP by 0.7 cm wide and exhibits a thin h ypointense internal border through most of the lesion as well as the short zone of transition and min imal if any significant surrounding bone edema. No evidence of cortical breakthrough nor adjacent so ft tissue mass. This is most probably a benign fibrous cortical defect/nonossifying fibroma or given its length being larger than 3 cm length, a benign fibroxanthoma. There is actually another similar but smaller appearing finding in similar eccentric location in the distal medial aspect of the femur . Exhibits similar characteristics. MUSCLES: There is no evidence of abnormal signal nor mass in the visualized muscles. EXTRAMUSCULAR SOFT TISSUES: There is a small ipsilateral knee joint effusion evident. Some subcutane ous fluid signal is incidentally noted anterior to the patella and patellar ligament consistent with prepatellar bursitis. There is no abnormal intraosseous signal in the patella itself at this level. OTHER: None. IMPRESSION: 1. Two similar appearing eccentric nonexpansile benign-appearing bone lesions in the distal right fem ur as described above, the larger of the 2 corresponding to the finding described on recent plain maricruz ms of 12/17/2023. 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 The longer of the two which measures 7 cm would be classified as a nonaggressive nonossifying fibroma/fibroxanthoma. 2. Incidentally noted is prepatellar bursitis in the ipsilateral knee. There is also a small ipsilat eral knee joint effusion. DATA REPOSITORY:
--- OUTSIDE RECORDS SUMMARY | 2023-12-22 02:03 | XMS_ITS | Encounter Summary ---
Author Organization [facility] Address [address] [place] [address] Care Team Providers Care Core Composer Machine Tender Name Role Phone Unavailable Primary Care Provider Unavailabl e Encounter Details Date Type Department Care Team (Late st Contact Info) Description 06/09/2006 Results Only [facility] conversion [address] [place] [address] Haily Jarvis ARNP [address] [place] [address] Social History Tobacco Use Types Packs/Day Years Used Date Smoking Tobacco: Never Assessed Sex and Gender Information Value Date Recorded Sex Assigned at Not on file Gender Identity Not on file Sexual Orientation Not on file documented as of this encounter Plan of Treatment Not on file documented as of this encounter Procedures Procedure Name Priority Date/Time Associated Diagnosis Comments CYTOPATHOLOGY Routine 06/09/2006 0:00 EST documented in this encounter Results * CYTOPATHOLOGY (06/09/2006 0:00 EST) Pathology Report: CYTOPATHOLOGY REPORT Reports generated via electronic interface contain original data; however they are lacking the format of the original report. Caution should be taken when reading/interpreti ng unformatted reports. Name: ? FIDELINA MOSER ? Accession #: ? [id number] : ? 1975 (Age: 30) ??F ?Collect Date: ? 06/09/2006 Location: ? [facility] ? Receive Date: ? 06/10/2006 Provider: ?HAILY MARADIAGA Copy to: ? Specimen/Source: ?ThinPrep Pap Test, Cervix/Endocervix, processed on [employer] ThinPrep Imaging System, with manual evaluation Last Menstrual Period: ? Menstrual/Pregnanc y Status: ? Other: ? HPVA - HPV testing requested if ASC-US on the current ThinPrep Pap test. ? SPECIMEN ADEQUACY ? Satisfactory for Evaluation - transformation zone component present GENERAL CATEGORIZATION ? Negative for Intraepithelial Lesion or Malignancy INTERPRETATION ? Fungal organisms present morphologically consistent with Mary Alice species. ? Document reviewed and electronically signed by: ? Alec Fan, ANAIS(ASCP) ? Report Date: ??06/11/2006 08:19 End of Report [facility] 06/09/2006 06/10/2006 Haily MARADIAGA PATHOLOGY ORDERAB LES Performing Organization Address City/State/[facility] Co de Phone Number [facility] [address] [place] [address] documented in this encounter Visit Diagnoses Not on filedocumented in this encounter
--- OUTSIDE RECORDS SUMMARY | 2023-12-22 02:03 | XMS_ITS | Encounter Summary ---
Author Organization [facility] Address [address] [place] [address] Care Team Providers Care Experimental Box Tester Name Role Phone Edgar Bianchi DNP Primary Care Provider [phone] Encounter Details Date Type Department Care Team (Late st Contact Info) Description 04/28/2023 Transcribe Orders [facility] [place] Junior Goodman MD [address] [facility] [address] [place] [address] Diverticulitis (Primary Dx); Stomach ache; Crohn's disease of small intestine with complication (HCC-CMS) Social History Tobacco Use Types Packs/Day Years Used Date Smoking Tobacco: Never Assessed Sex and Gender Information Value Date Recorded Sex Assigned at Not on file Gender Identity Not on file Sexual Orientation Not on file documented as of this encounter Plan of Treatment Not on file documented as of this encounter Visit Diagnoses Diagnosis Diverticulitis- Primary Diverticulitis of colon (without mention of hemorrhage) Stomach ache Dyspepsia and other specified disorders of function of stomach Crohn's disease of small intestine with complication (HCC-CMS) Regional enteritis of small intestine documented in this encounter Care Teams Experimental Box Tester Relationship Specialty Start Date End Date Edgar Bianchi, DNP [facility] [place] [id number] PCP - General 12/09/21 documented as of this encounter
--- OUTSIDE RECORDS SUMMARY | 2023-12-22 02:03 | XMS_ITS | Encounter Summary ---
Author Organization [facility] Address [address] [place] [address] Care Team Providers Care Breakfast Attendant Name Role Phone Unavailable Primary Care Provider Unavailabl e Encounter Details Date Type Department Care Team (Late st Contact Info) Description 04/12/2008 Before PRISM Converted Visit ([facility]) [facility] conversion [address] [place] [address] Franklyn Talamantes MD [address] [place] [address] Social History Tobacco Use Types Packs/Day Years Used Date Smoking Tobacco: Never Assessed Sex and Gender Information Value Date Recorded Sex Assigned at Not on file Gender Identity Not on file Sexual Orientation Not on file documented as of this encounter Plan of Treatment Not on file documented as of this encounter Procedures Procedure Name Priority Date/Time Associated Diagnosis Comments SURGICAL PATHOLOGY Routine 04/12/2008 0:00 EST documented in this encounter Results * SURGICAL PATHOLOGY (04/12/2008 0:00 EST) Pathology Report: SURGICAL PATHOLOGY REPORT ? Reports generated via electronic interface contain original data; ? however they are lacking the format of the original report. ? Caution should be taken when reading/interpreti ng unformatted reports. ? Name: ? SHANTI, FIDELINA K ? Accession #: ? [id number] ? : ? 1975 (Age: 32) ??F ? Collect Date: ? 04/12/2008 ? Location: ? [facility] ? Receive Date: ? 04/13/2008 ? Provider: FRANKLYN TALAMANTES MD ? Copy to: ? Final Pathologic Diagnosis: ? A. ?Cervix, 10 o'clock, biopsy: ? 1. ?Reactive immature squamous metaplasia. ??See comment. ? B. ?Cervix, 12 o'clock, biopsy: ? 1. ?Reactive immature squamous metaplasia. ??See comment. ? Comment: ? The referring Pap test ([id number]) was reviewed by Dr. Vic Toscano in conjunction with the current case. ??The findings in the Pap test correlate with the current biopsies. ??Deeper sections of (A) and (B) were examined. ??(. ? Sofia)/tmg ? Document reviewed and electronically signed by: ? Dalila Yee MD ? Report ??Date: 04/19/2008 16:53 ? By the signature above, the attending physician certifies that he/she has ? personally conducted a gross and/or microscopic examination of the described ? specimens and rendered or confirmed the above diagnosis. ? Specimen(s) Received: ? A. ?Cerv bx 10:00 ? B. ? Cerv bx 12:00 ? Clinical History: ? ASCUS; R/O HG on Pap from //08; clinical diagnosis code: ??795.02 ? Gross Description: ? Received in formalin labelled Lenzini and cerv bx 10:00 is a martinez-white tissue measuring 0.4 x 0.3 x 0.3 cm. ??The specimen is entirely submitted as (A). ? Received in formalin labelled Shanti and cerv bx 12:00 is a martinez-white ? tissue measuring 0.4 x 0.4 x 0.3 cm. ??The specimen is entirely submitted as (B). (Ortiz Kirkpatrick)/nel ? End of Report ? [facility] 04/12/2008 04/13/2008 8:5 7 EST Franklyn Talamantes MD PATHOLOGY ORDERABLES [facility] [address] [place] [address] documented in this encounter Visit Diagnoses Not on filedocumented in this encounter
--- OUTSIDE RECORDS SUMMARY | 2023-12-22 02:03 | XMS_ITS | Encounter Summary ---
Author Organization [facility] Address [address] [place] [address] Care Team Providers Care Dialysis Equipment Technician Name Role Phone None, Provider Primary Care Provider Edgar Jewell DNP Primary Care Provider [phone] Encounter Details Date Type Department Care Team (Latest Contact Info) Description 05/30/2020 Lab Requisition [facility] Pathology & Laboratory Medicine - [facility] [address] [place] [address] Edgar Bianchi, KALLI [address] [place] [id number] Encounter for general adult medical examination without abnormal findings; Encounter for screening for malignant neoplasm of cervix; Encounter for screening for human papillomavirus (HPV) Social History Tobacco Use Types Packs/Day Years Used Date Smoking Tobacco: Never Assessed Sex and Gender Information Value Date Recorded Sex Assigned at Not on file Gender Identity Not on file Sexual Orientation Not on file documented as of this encounter Plan of Treatment Not on file documented as of this encounter Procedures Procedure Name Priority Date/Time Associated Diagnosis Comments PAP TEST Today 05/29/2020 14:00 EST Encounter for general adult medical examination without abnormal findings Encounter for screening for malignant neoplasm of cervix Encounter for screening for human papillomavirus (HPV) HPV DNA DETECTION WITH GENOTYPING, PCR Today 05/29/2020 14:00 EST Encounter for general adult medical examination without abnormal findings Encounter for screening for malignant neoplasm of cervix Encounter for screening for human papillomavirus (HPV) documented in this encounter Results * HUMAN PAPILLOMAVIRUS (HPV) DETECTION-HIGH RISK TYPES (05/29/2020 14:00 EST) HPV other High Risk types, PCR Negative Negative 06/08/2020 14:55 [facility] Comment:No E6 or E7 mRNA is detected from HPV types 16,18,31,33,35,39,45,51,52,56,58,59,66, and 68 by vessel scrapper helper mediated amplification. Papanicolaou smear specimen (specimen) CERVIX UTERI STRUCTURE / Unknown 05/29/2020 14:00 EST 06/07/2020 11:43 EST Edgar Zamora [facility] [address] [place] [address] * PAP TEST (05/29/2020 14:00 EST) Specimens A. Cervix and/or Endocervix , ThinPrep Imaging System with Manual Evaluation 06/08/2020 14:55 [facility] Specimen Adequacy Satisfactory for Evaluation - transformation zone component absent 06/08/2020 14:55 [facility] General Categorization Negative for intraepithelial lesion or malignancy 06/08/2020 14:55 [facility] Attestation . 06/08/2020 14:55 [facility] at 1455 Clinical History See below 06/08/19 14:55 [facility] HPV The result for the Human Papillomavirus (HPV) Detection-High Risk Types is Negative. No E6 or E7 mRNA is detected from HPV types 16,18,31,33,35,39 ,45,51,52,56,58,5 9,66, and 68 by vessel scrapper helper mediated amplification.Lizet ting was performed on specimen [id number] and was resulted on 06/08/2020 1435 EST by BARBRA, LAB INSTRUMENT RESULTS IN 06/08/2020 14:55 [facility] Performing Lab [facility] 06/08/2020 14:55 EST [facility] Scanned Images 06/08/2020 14:55 EST [facility] Papanicolaou smear specimen (specimen) CERVIX UTERI STRUCTURE / Unknown 05/29/2020 14:00 EST 05/30/2020 10:29 EST Edgar Zamora DNP PATHOLOGY ORDERAB LES Performing Organization Address City/State/[facility] Co de Phone Number [facility] [address] [place] [address] documented in this encounter Visit Diagnoses Diagnosis Encounter for general adult medical examination without abnormal findings Unspecified general medical examination Encounter for screening for malignant neoplasm of cervix Screening for malignant neoplasm of the cervix Encounter for screening for human papillomavirus (HPV) Special screening examination for human papillomavirus (HPV) documented in this encounter Care Teams Dialysis Equipment Technician Relationship Specialty Start Date End Date None, Provider PCP - General 04/02/15 12/08/21 Edgar Bianchi, KALLI [facility] [place] [place] [address] PCP - General 12/09/21 documented as of this encounter
--- OUTSIDE RECORDS SUMMARY | 2023-12-22 02:03 | XMS_ITS | Clinical Summary ---
Author Organization [facility] [place] [address] Care Team Providers Care Industrial Spray Painter Name Role Phone Latoya Phan Girma PANDA Primary Care Provider [phone] Social History Tobacco Use Types Packs/Day Years Used Date Smoking Tobacco: Never Assessed Sex and Gender Information Value Date Recorded Sex Assigned at Not on file Gender Identity Not on file Sexual Orientation Not on file Plan of Treatment Health Maintenance Due Date Last Done Comments CT Colonography 1975 Colonoscopy 1975 Colorectal Cancer Screening 1975 FIT DNA 1975 FIT 1975 Sigmoidoscopy (10 year) with FIT yearly 1975 Sigmoidoscopy 1975 HIV screen 12/03/1993 Hepatitis C Screening 12/03/1993 Hepatitis B vaccine (0-59 yrs) (1) 12/03/1994 Tdap adult 12/03/1994 Tetanus vaccine 12/03/1994 HPV test 12/03/2005 PAP Smear 12/03/2005 Breast Cancer Share Decision Needed 2015 Breast Cancer screening 2015 Covid-19 Vaccine ( season) 2023 Influenza (Flu) vaccine (1 o f 1 - Influenza standard series) 01/10/2024 Care Teams Industrial Spray Painter Relationship Specialty Start Date End Date Latoya Phan, TECHNICAL LABORATORY ASST Kassandra [place] [address] PCP - General Family Medicine 06/05/22
--- OUTSIDE RECORDS SUMMARY | 2023-12-22 02:03 | XMS_ITS | Encounter Summary ---
Author Organization [facility] Address [address] [place] [address] Care Team Providers Care State Editor Name Role Phone Unavailable Primary Care Provider Unavailabl e Encounter Details Date Type Department Care Team (Late st Contact Info) Description 03/06/2008 Before PRISM Converted Visit (Maple) [facility] - Maple conversion [address] [place] [address] Franklyn Talamantes MD [address] [place] [address] Social History Tobacco Use Types Packs/Day Years Used Date Smoking Tobacco: Never Assessed Sex and Gender Information Value Date Recorded Sex Assigned at Not on file Gender Identity Not on file Sexual Orientation Not on file documented as of this encounter Plan of Treatment Not on file documented as of this encounter Procedures Procedure Name Priority Date/Time Associated Diagnosis Comments CYTOPATHOLOGY Routine 03/06/2008 0:00 EDT documented in this encounter Results * CYTOPATHOLOGY (03/06/2008 0:00 EDT) Pathology Report: CYTOPATHOLOGY REPORT ? Reports generated via electronic interface contain original data; ? however they are lacking the format of the original report. ? Caution should be taken when reading/interpreti ng unformatted reports. ? Name: ? FIDELINA MOSER ? Accession #: ? [id number] ? : ? 1975 (Age: 32) ??F ?Collect Date: ? 03/06/2008 ? Location: ? [facility] ? Receive Date: ? 03/08/2008 ? Provider: ?FRANKLYN TALAMANTES MD ? Copy to: ? Specimen/Source: ?Pap Test, Cervix/Endocervix, ThinPrep Imaging System ? with manual evaluation ? Last Menstrual Period: ? 10/14/08 ? Other: ? HPVA - HPV testing requested if ASC-US on the current ThinPrep Pap test. ? SPECIMEN ADEQUACY ? Satisfactory for Evaluation ? - transformation zone component present ? GENERAL CATEGORIZATION ? Epithelial Cell Abnormality ? INTERPRETATION ? Squamous Cell Abnormality - Atypical squamous cells, cannot exclude ? high grade squamous ? intraepithelial lesion (ASC-H). ? EDUCATIONAL NOTES/RECOMMENDATI ONS ? [facility] recommends following the 2006 Consensus Guidelines for the Management of Women with Abnormal Cervical Cancer Screening Tests (JLGTD, ? 2007;11(4:201-222 ). ??Consensus guidelines are available online at ? www.ASCCP.org. ? Document reviewed and electronically signed by: ? Jeffrey Reyez, MD ? Report Date: ??03/14/2008 13:38 ? End of Report ? [facility] 03/06/2008 03/08/2008 Franklyn Talamantes MD PATHOLOGY ORDERABLES Performing Organization Address City/State/[facility] Co de Phone Number [facility] [address] [place] [address] documented in this encounter Visit Diagnoses Not on filedocumented in this encounter
--- OUTSIDE RECORDS SUMMARY | 2023-12-22 02:03 | XMS_ITS | Encounter Summary ---
Author Organization [facility] Address [address] [place] [address] Care Team Providers Care Reptile Keeper Name Role Phone Unavailable Primary Care Provider Unavailabl e Encounter Details Date Type Department Care Team (Late st Contact Info) Description 06/02/2014 Results Only [facility] [phone] Maggie Hernandez, BUS [place] [address] Social History Tobacco Use Types Packs/Day Years Used Date Smoking Tobacco: Never Assessed Sex and Gender Information Value Date Recorded Sex Assigned at Not on file Gender Identity Not on file Sexual Orientation Not on file documented as of this encounter Plan of Treatment Not on file documented as of this encounter Procedures Procedure Name Priority Date/Time Associated Diagnosis Comments PAP TEST- RESULT ONLY Routine 06/02/2014 0:00 EST documented in this encounter Results * PAP TEST- RESULT ONLY (06/02/2014 0:00 EST) Pathology Report: CYTOPATHOLOGY REPORT Reports generated via electronic interface contain original data; however they are lacking the format of the original report. Caution should be taken when reading/interpreti ng unformatted reports. Name: ? FIDELINA MOSER ? Accession #: ? [id number] : ? 1975 (Age: 38) ??F ?Collect Date: ? 06/02/2014 Location: ? [facility] ? Receive Date: ? 06/06/2014 Provider: ?MAGGIE HERNANDEZ APRN Copy to: ? Specimen/Source: ?Pap Test, Cervix/Endocervix, ThinPrep Imaging System with manual evaluation Last Menstrual Period: ? SPECIMEN ADEQUACY ? Satisfactory for Evaluation - transformation zone component present GENERAL CATEGORIZATION ? Negative for Intraepithelial Lesion or Malignancy ? Document reviewed and electronically signed by: ? ANAIS Ely(ASCP) ? Report Date: ??06/13/2014 15:44 End of Report [facility] 06/02/2014 06/06/2014 Maggie Hernandez APRN PATHOLOGY ORDERABLES [facility] [address] [place] [address] documented in this encounter Visit Diagnoses Not on filedocumented in this encounter
--- OUTSIDE RECORDS SUMMARY | 2023-12-22 02:03 | XMS_ITS | Encounter Summary ---
Author Organization [facility] Address [address] [place] [address] Care Team Providers Care Professional Fighter Name Role Phone Unavailable Primary Care Provider Unavailabl e Encounter Details Date Type Department Care Team (Late st Contact Info) Description 04/30/2009 Orders Only [facility] Laboratory Services - [facility] ([facility] [address] [place], [place] [id number] Franklyn Talamantes MD [address] [place] [address] Social History Tobacco Use Types Packs/Day Years Used Date Smoking Tobacco: Never Assessed Sex and Gender Information Value Date Recorded Sex Assigned at Not on file Gender Identity Not on file Sexual Orientation Not on file documented as of this encounter Plan of Treatment Not on file documented as of this encounter Procedures Procedure Name Priority Date/Time Associated Diagnosis Comments CYTOPATHOLOGY Routine 04/30/2009 0:00 EST documented in this encounter Results * CYTOPATHOLOGY (04/30/2009 0:00 EST) Pathology Report: CYTOPATHOLOGY REPORT ? Reports generated via electronic interface contain original data; ? however they are lacking the format of the original report. ? Caution should be taken when reading/interpreti ng unformatted reports. ? Name: ? FIDELINA MOSER ? Accession #: ? [id number] ? : ? 1975 (Age: 33) ??F ?Collect Date: ? 04/30/2009 ? Location: ? [facility] ? Receive Date: ? 05/02/2009 ? Provider: ?FRANKLYN TALAMANTES MD ? Copy to: ? Specimen/Source: ?Pap Test, Cervix/Endocervix, ThinPrep Imaging System ? with manual evaluation ? Last Menstrual Period: ? Other: ? HPVA - HPV testing requested if ASC-US on the current ThinPrep Pap test. ? SPECIMEN ADEQUACY ? Satisfactory for Evaluation ? - transformation zone component present ? GENERAL CATEGORIZATION ? Negative for Intraepithelial Lesion or Malignancy ? Document reviewed and electronically signed by: ? Mandi Nickerson, CT(ASCP)(IAC) ? Report Date: ??05/08/2009 14:26 ? End of Report ? [facility] 04/30/2009 05/02/2009 Franklyn Talamantes MD PATHOLOGY ORDERABLES [facility] [address] [place] [address] documented in this encounter Visit Diagnoses Not on filedocumented in this encounter
--- OUTSIDE RECORDS SUMMARY | 2023-12-22 02:03 | XMS_ITS | Clinical Summary ---
Author Organization [facility] Address [address] [place] [address] Care Team Providers Care Glass Beveller Name Role Phone Edgar Bianchi DNP Primary Care Provider [phone] Social History Tobacco Use Types Packs/Day Years Used Date Smoking Tobacco: Never Assessed Sex and Gender Information Value Date Recorded Sex Assigned at Not on file Gender Identity Not on file Sexual Orientation Not on file Plan of Treatment Health Maintenance Due Date Last Done Comments Hepatitis C Screen 1975 Hepatitis B Vaccine (1 of 3 - 19+ 3-dose series) 12/03 COVID-19 Vaccine (2022-24 season) 2023 Care Teams Glass Beveller Relationship Specialty Start Date End Date Edgar Bianchi, DNP [address] [place] [address] PCP - General 12/09/21
--- OUTSIDE RECORDS SUMMARY | 2023-12-22 02:03 | XMS_ITS | Encounter Summary ---
Author Organization [facility] Address [address] [place] [address] Care Team Providers Care Legal Receptionist Name Role Phone Edgar Bianchi DNP Primary Care Provider [phone] Encounter Details Date Type Department Care Team (Late st Contact Info) Description 12/30/2021 Lab Requisition [facility] Pathology & Laboratory Medicine - [facility] [address] [place] [address] Arminda Chahal MD [address] [place] [id number] Encounter for other general examination Social History Tobacco Use Types Packs/Day Years Used Date Smoking Tobacco: Never Assessed Sex and Gender Information Value Date Recorded Sex Assigned at Not on file Gender Identity Not on file Sexual Orientation Not on file documented as of this encounter Plan of Treatment Not on file documented as of this encounter Procedures Procedure Name Priority Date/Time Associated Diagnosis Comments SURGICAL PATHOLOGY Today 12/30/2021 11 :45 EDT Encounter for other general examination documented in this encounter Results * SURGICAL PATHOLOGY (12/30/2021 11:45 EDT) Note to Patient The following pathology results have been interpreted by your pathologist and may be available to you before your health provider has had the opportunity to review them. Please allow time for your provider to receive these results and explore management options, if applicable. 12/31/2021 16:57 EDT [facility] Final Diagnosis A. COLON, ASCENDING, POLYPS X2, BIOPSY: - Sessile serrated adenomas. B. COLON, SIGMOID, POLYP, BIOPSY: - Hyperplastic polyp. 12/31/2021 16:57 T [facility] Attestation By the signature below, the attending physician certifies that they have 1) personally conducted a gross and/or microscopic examination of the described specimen(s), and/or personally interpreted the results of laboratory testing of the described specimen(s), and 2) personally rendered or confirmed the above diagnosis. 12/31/2021 16:57 T [facility] at 1657 Clinical History Screening; polyps 12/31/2021 16:57 EDT [facility] Gross Description A. Received in formalin labelled with proper patient identification (initials L, S) and ascending colon polyps x2 are 3 blake tissues (0.7 x 0.1 x 0.1 cm to 0.2 x 0.1 x 0.1 cm). Entirely submitted in A1. B. Received in formalin labelled with proper patient identification (initials L, S) and sigmoid polyp is a single blake tissue fragment (0.2 x 0.1 x 0.1 cm). Submitted intact in B1. DULCE CRUMP 12/31/2021 5:38 12/31/2021 16:57 EDT [facility] Performing Lab [facility] 12/31/2021 16:57 EDT [facility] Scanned Images 12/31/2021 16:57 T [facility] Tissue ENTIRE SIGMOID COLON / Unknown 12/30/2021 11:45 EDT 12/30/2021 18:08 EDT Tissue specimen (specimen) SIGMOID COLON STRUCTURE / Unknown 12/30/2021 11:45 EDT 12/30/2021 18:08 EDT Arminda Chahal MD PATHOLOGY ORDERA BEN [facility] [address] [place] [address] documented in this encounter Visit Diagnoses Diagnosis Encounter for other general examination documented in this encounter Care Teams Legal Receptionist Relationship Specialty Start Date End Date Edgar Bianchi, DNP [address] [place] [address] PCP - General 12/09/21 documented as of this encounter
--- OUTSIDE RECORDS SUMMARY | 2023-12-22 02:03 | XMS_ITS | Encounter Summary ---
Author Organization [place] [address] Care Team Providers Care Ledger Poster Name Role Phone Latoya Phan APRN Primary Care Provider [phone] Reason for Referral * Consultation (Routine) - Closed Specialty Diagnoses / Procedures Referred By Zane acosta Referred To Contact Dermatology Diagnoses Dermatitis Screening exam for skin cancer Honey Orlando APRN [address] [place] [address] [facility] [address] [place] [address] Referral ID Status Reason Start Date Expiration Date V isits Requested Visits Authorized [id number] Closed Consult, Test & Treat PCP Updated and/or Approved 06/05/2022 06/05/2023 6 6 Encounter Details Date Type Department Care Team (Latest Contact Info) Description 06/05/2022 Transcribe Orders eD Incoming Referrals [phone] Honey Orlando APRN [address] [place], [place] [id number] Dermatitis; Screening exam for skin cancer Social History Tobacco Use Types Packs/Day Years Used Date Smoking Tobacco: Never Assessed Sex and Gender Information Value Date Recorded Sex Assigned at Not on file Gender Identity Not on file Sexual Orientation Not on file documented as of this encounter Plan of Treatment Scheduled Referrals Name Type Priority Associated Diagnoses Order Schedule Referral to Dermatology Outpatient Referral Routine Dermatitis Screening exam for skin cancer Ordered: 06/05/2022 documented as of this encounter Visit Diagnoses Diagnosis Dermatitis Contact dermatitis and other eczema, due to unspecified cause Screening exam for skin cancer Screening for malignant neoplasm of the skin documented in this encounter Care Teams Ledger Poster Relationship Specialty Start Date End Date Latoya Phan, [place] [address] PCP - General Family Medicine 06/05/22 documented as of this encounter
--- OUTSIDE RECORDS SUMMARY | 2023-12-22 02:03 | XMS_ITS | Referral Summary ---
Author Organization [facility] Address [address] [place] [address] Care Team Providers Care Skill Training Program Coordinator Name Role Phone Edgar Bianchi DNP Primary Care Provider [phone] Social History Tobacco Use Types Packs/Day Years Used Date Smoking Tobacco: Never Assessed Sex and Gender Information Value Date Recorded Sex Assigned at Not on file Gender Identity Not on file Sexual Orientation Not on file Plan of Treatment Not on file Care Teams Skill Training Program Coordinator Relationship Specialty Start Date End Date Edgar Bianchi, DNP [facility] [place] [address] PCP - General 12/09/21
--- OUTSIDE RECORDS SUMMARY | 2023-12-22 02:03 | XMS_ITS | Encounter Summary ---
Author Organization [facility] Address [address] [place] [address] Care Team Providers Care Director Of Assessing Name Role Phone None, Provider Primary Care Provider Edgar Jewell DNP Primary Care Provider [phone] Encounter Details Date Type Department Care Team (Latest Contact Info) Description 05/27/2019 Lab Requisition [facility] Pathology & Laboratory Medicine - [facility] [address] [place] [address] Edgar Bianchi, KALLI [address] [place] [id number] Encounter for general adult medical examination without [...] Date/Time Associated Diagnosis Comments PAP TEST Today 05/26/2019 8:40 EST Encounter for general adult medical examination without abnormal findings Encounter for screening for malignant neoplasm of cervix Encounter for screening for human papillomavirus (HPV) HPV DNA DETECTION WITH GENOTYPING, PCR Today 05/26/2019 8:40 EST Encounter for general adult medical examination without abnormal findings Encounter for screening for malignant neoplasm of cervix Encounter for screening for human papillomavirus (HPV) documented in this encounter Results * (ABNORMAL) HUMAN PAPILLOMAVIRUS (HPV) DETECTION-HIGH RISK TYPES (05/26/2019 8:40 EST) HPV other High Risk types, PCR Positive(A ) Negative 06/01/2019 14:42 [facility] Papanicolaou smear specimen (specimen) CERVIX UTERI STRUCTURE / Unknown 05/26/2019 8:40 EST 05/31/2019 14:27 EST Edgar Zamora [facility] MICRO[facility]OLOG[facility] - NERAL ORDERABLES [facility] [address] [place] [address] * PAP TEST (05/26/2019 8:40 EST) Specimens A. Cervix and/or Endocervix, , ThinPrep Imaging System with Manual Evaluation 06/01/2019 14:42 [facility] Specimen Adequacy Satisfactory for Evaluation - transformation zone component present 06/01/2019 14:42 [facility] General Categorization Negative for intraepithelial lesion or malignancy 06/01/2019 14:42 [facility] Attestation . 06/01/2019 14:42 [facility] at 1441 Clinical History NONE 06/01/19 14:42 [facility] HPV The result for the Human Papillomavirus (HPV) Detection-High Risk Types is Positive . E6 OR E7 mRNA from one or more types of HPV types 16,18,31,33,35,39 ,45,51,52,56,58,5 9,66, and 68 is detected by rack cleaner mediated amplification. High and intermediate risk HPV types are associated with most squamous intraepithelial lesions and cervical cancers. Testing was performed on specimen [id number] and was resulted on 06/01/2019 1844 EST by BARBRA, LAB INSTRUMENT RESULTS IN 06/01/2019 14:42 [facility] Scanned Images 06/01/2019 14:42 [facility] Papanicolaou smear specimen (specimen) CERVIX UTERI STRUCTURE / Unknown 05/26/2019 8:40 EST 05/27/2019 9:21 EST Edgar Zamora DNP PATHOLOGY ORDERAB LES Performing Organization Address City/State/[facility] Co de Phone Number [facility] [address] [place] [address] documented in this encounter Visit Diagnoses Diagnosis Encounter for general adult medical examination without abnormal findings Unspecified general medical examination Encounter for screening for malignant neoplasm of cervix Screening for malignant neoplasm of the cervix Encounter for screening for human papillomavirus (HPV) Special screening examination for human papillomavirus (HPV) documented in this encounter Care Teams Director Of Assessing Relationship Specialty Start Date End Date None, Provider PCP - General 04/02/15 12/08/21 Edgar Bianchi, KALLI [address] [place] [address] [place] [address] PCP - General 12/09/21 documented as of this encounter
== END 2023-12-22 02:22 ==
LOC: DI 02:02
PROVIDERS: Visit Provider Physician Assistant Medical
DX: M89.8X6 Other specified disorders of bone, lower leg (principal)
CPT/HCPCS: 73718

== ENCOUNTER 2024-06-27 22:12 | Outpatient (REF) | payer OTHER, SELFPAY ==
[2024-06-27 21:14] LABS: Abs Immature Grans 0.03 10^3/uL (0.0-0.06); Absolute Basophil Count 0.07 10^3/uL (0.0-0.2); Absolute Lymphocyte Count 1.32 10^3/uL (1.2-3.4); Absolute Monocyte Count 0.62 10^3/uL (0.1-0.8); Absolute Neutrophil Count 5.33 10^3/uL (1.2-6.7); Basophils % 0.9 %; Eosinophils % 2.6 %; HCT 43.3 % (36.0-46.0); HGB 14.9 g/dL (11.2-15.7); Immature Grans % 0.4 %; Lymphocytes % 17.4 %; MCH 31.2 pg (27.0-33.0); MCHC 34.4 % (32.0-36.0); MCV 91 fL (80-95); MPV 9.3 fL (8.0-11.0); Monocytes % 8.2 %; Neutrophils % 70.5 %; Platelet Count 213 10^3/uL (130-400); RBC 4.78 10^6/uL (3.93-5.22); RDW 13.1 % (11.7-14.6); RDW-SD 42.6 fL; WBC 7.57 10^3/uL (4.4-10.8)
[2024-06-27 21:27] LABS: Estimated GFR 69.49 (mL/min/1.73m2)
== END 2024-06-27 22:13 | disposition home or self-care (01) ==
LOC: LBN 22:12
PROVIDERS: Visit Provider Nurse Practitioner Family
DX: R22.0 Localized swelling, mass and lump, head (principal)
CPT/HCPCS: 82565; 85025; 86140

== ENCOUNTER 2024-08-12 16:02 | Outpatient (REF) | payer OTHER, SELFPAY ==
[2024-08-12 21:18] LABS: ESR 18 mm/hr (0-20)
[2024-08-12 21:19] LABS: Abs Immature Grans 0.03 10^3/uL (0.0-0.06); Absolute Basophil Count 0.05 10^3/uL (0.0-0.2); Absolute Eosinophil Count 0.02 10^3/uL (0.0-0.7); Absolute Lymphocyte Count 1.18 10^3/uL (1.2-3.4); Absolute Monocyte Count 0.88 10^3/uL (0.1-0.8); Absolute Neutrophil Count 8.41 10^3/uL (1.2-6.7); Basophils % 0.5 %; Eosinophils % 0.2 %; HCT 42.9 % (36.0-46.0); Immature Grans % 0.3 %; Lymphocytes % 11.2 %; MCH 30.7 pg (27.0-33.0); MCV 88 fL (80-95); MPV 9.3 fL (8.0-11.0); Monocytes % 8.3 %; Neutrophils % 79.5 %; Platelet Count 270 10^3/uL (130-400); RBC 4.88 10^6/uL (3.93-5.22); RDW 12.7 % (11.7-14.6); RDW-SD 41.2 fL; WBC 10.57 10^3/uL (4.4-10.8)
[2024-08-12 21:55] LABS: ALT 25 U/L (14-59); AST 13 U/L (15-37); Alkaline Phosphatase 89 U/L (46-116); Anion Gap 12.9 mmol/L (3-11); BUN 12 mg/dL (7-18); Bilirubin, Total 1.4 mg/dL (0.2-1.0); C-Reactive Protein 16.27 mg/dL (<or=0.5); CO2 24.1 mmol/L (21.0-32.0); CREATININE 0.9 mg/dL (0.55-1.02); Calcium 9.6 mg/dL (8.5-10.1); Chloride 105 mmol/L (98-107); Estimated GFR 78.86 (mL/min/1.73m2); Glucose 84 mg/dL (74-106); Sodium 142 mmol/L (136-145)
[2024-08-15 10:53] LABS: HIV-1/2 Ag & Ab Screen Negative (Negative)
[2024-08-15 11:12] LABS: Hepatitis C Ab w Rflx HCV PCR Negative (Negative)
== END 2024-08-12 16:03 | disposition home or self-care (01) ==
LOC: NCHCN 16:02
PROVIDERS: Visit Provider Family Medicine
DX: R10.9 Unspecified abdominal pain (principal)
CPT/HCPCS: 80053; 85652; 86803; 87389; 85025; 86140

== ENCOUNTER 2024-09-09 01:32 | Outpatient (CLI) | payer OTHER, SELFPAY ==
--- NOTE | 2024-09-09 | DI.MAMMO_ITS ---
Exam(s) MAMMO SCREENING EXAM: MAMMO SCREENING CLINICAL HISTORY: screening Z12.39 TECHNIQUE: Mammograms were interpreted according to the usual protocol including computer analysis w [employer] CAD system, tomosynthesis and C-view imaging. COMPARISON: 2020 and 2022 FINDINGS: The breasts are composed of scattered fibroglandular densities, Breast Density category B. No suspicious masses or suspicious microcalcifications are seen. No skin thickening or abnormal axillary lymph nodes are seen. There has been no significant change from prior exams. IMPRESSION: BI-RADS Category 1, Negative mammogram Yearly screening mammography is recommended. Breast Density - Category B, scattered fibroglandular densities. Breast density Category C or D implies that the patient has dense breast tissue. Dense breast tissue can make it harder to find cancer on a mammogram. Dense breast tissue is also associated with an incr eased risk of breast cancer. This information about the result of the mammogram report was provided to the patient to raise their awareness. Use this report when you speak with the patient about their risks for breast cancer, which includes their family history. At that time, you may recommend additional screening tests (Ultrasoun d or MRI) as these tests may add significant information. A negative radiographic report should not delay biopsy if a dominant or clinically suspicious mass is present. Up to ten percent of cancers are not identified on mammography. A negative report may reinforce clinical impression. Adenosis and dense breasts may obscure an underlying neoplasm. False positive reports average 6 to 10%. Patient will receive a letter notifying them of these results.
== END 2024-09-09 01:52 ==
PROVIDERS: PCP Family Medicine; Visit Provider Family Medicine
DX: Z12.31 Encounter for screening mammogram for malignant neoplasm of breast (principal); R92.323 Mammographic fibroglandular density, bilateral breasts
CPT/HCPCS: 77063; 77067

== ENCOUNTER 2024-09-19 14:57 | Outpatient (REF) | payer OTHER, SELFPAY ==
[2024-09-19 15:39] LABS: Hemoglobin A1C 4.7 % (<5.7)
== END 2024-09-19 14:58 | disposition home or self-care (01) ==
LOC: NCHCN 14:57
PROVIDERS: PCP Family Medicine; Visit Provider Family Medicine
DX: Z13.1 Encounter for screening for diabetes mellitus (principal)
CPT/HCPCS: 83036

== ENCOUNTER 2025-01-11 08:49 | Outpatient (RCR) | payer OTHER, SELFPAY ==
--- NOTE | 2025-01-17 09:24 | W.HOLTRPT ---
Date of service: 01/17/25 Time of Service: 09:24 Holter Monitor Report Referring Provider:: Madison Muhammad Indications:: Palpitations Holter Monitor Note: This a 48-hour Holter monitor Rhythm throughout was sinus with an average heart rate of 74. Minimum was 48, maximum 130 There were very rare isolated atrial and ventricular ectopic beats There was no atrial fibrillation, no SVT, no high-grade AV block, no pauses greater than 3 seconds Reported symptoms had no correlation to any dysrhythmia
== END 2025-02-07 23:59 | disposition home or self-care (01) ==
LOC: CARDOPNVT 08:49
PROVIDERS: PCP Family Medicine; Visit Provider Internal Medicine Cardiovascular Disease
DX: R00.2 Palpitations (principal)
CPT/HCPCS: 93225; 93226

== ENCOUNTER 2025-02-20 21:03 | Outpatient (REF) | payer OTHER, SELFPAY ==
[2025-02-20 21:27] LABS: C-Reactive Protein 5.35 mg/dL (<or=0.5)
[2025-02-22 10:23] LABS: Lyme Ab w Rflx to Lyme Confirm Negative (Negative)
== END 2025-02-20 21:04 | disposition home or self-care (01) ==
LOC: NCHCN 21:03
PROVIDERS: PCP Family Medicine; Visit Provider Family Medicine
DX: A69.20 Lyme disease, unspecified (principal)
CPT/HCPCS: 86140; 86618